=== PATIENT | male | born 1985 | race African-American/Black ===

== ENCOUNTER 2017-03-21 10:39 | Emergency (ER) | payer MEDICAID ==
[~2017-03-21] VITALS: Ht 182.9 cm; Wt 82.0 kg
[2017-03-21 10:48] VITALS: BP 115/80
[2017-03-21] MEDS ORDERED: BACITRACIN ZINC OINT UDPKT TOP ONE (11:30)
[2017-03-21] MEDS ORDERED: LIDOCAINE HCL 1% 20ML VIAL (Pyxis) INJ MC ONE (11:30)
[2017-03-21] MEDS ORDERED: TETANUS AND DIPHTHERIA TOX/PF 0.5ML SYR (ADULT) IM ONE (11:30)
== END 2017-03-21 14:06 | disposition home or self-care (01) ==
LOC: ER 12:26
DX: S61.210A Laceration without foreign body of right index finger without damage to nail, initial encounter (principal); W25.XXXA Contact with sharp glass, initial encounter; Y93.89 Activity, other specified; Y92.89 Other specified places as the place of occurrence of the external cause; Y99.8 Other external cause status
CPT/HCPCS: 12001; 90471; 99283; J3490; Z7610; 90714